=== PATIENT | female | born 1990 | race Asian ===

== ENCOUNTER 2021-08-05 00:49 | Emergency (ER) | payer OTHER ==
[~2021-08-05] VITALS: Ht 162.6 cm; Wt 91.0 kg
[2021-08-05 02:07] LABS: BASOPHILS % 0.8 % (0.0-2.0); HEMATOCRIT. 32.8 % (36.0-48.0); HEMOGLOBIN. 11.3 g/dL (12.0-16.0); LYMPHOCYTES % 32.5 % (20.0-50.0); MEAN CORPUSCULAR HEMOGLOBIN 28.5 pg (28.0-32.0); MEAN CORPUSCULAR VOLUME 83.2 fL (81.0-99.0); MEAN PLATELET VOLUME 9.1 fl (7.4-10.4); NEUTROPHILS % 53.7 % (40.0-76.0); PLATELET 201 x1000/uL (130-400); RED BLOOD CELL COUNT 3.95 mill/uL (4.2-5.4); RED CELL DISTRIBUTION WIDTH 14.6 % (11.6-14.6)
[2021-08-05 02:13] LABS: CHLORIDE 108 mEq/L (98-107)
[2021-08-05] MEDS ORDERED: ACETAMINOPHEN 325MG TABLET PO ONE (06:30)
[2021-08-05 06:34] VITALS: BP 115/76
[2021-08-05] MEDS ORDERED: IOHEXOL-350 100 ML BOTTLE ONE (06:45)
== END 2021-08-05 06:35 | disposition home or self-care (01) ==
LOC: ER 00:49
DX: R07.89 Other chest pain (principal); Z88.0 Allergy status to penicillin
CPT/HCPCS: 36415; 71045; 71275; 80053; 81025; 84484; 85025; 85379; 93005; 99285; Q9967